=== PATIENT | male | born 1955 | race Two or more races ===

== ENCOUNTER → 2020-04-26 18:08 | Outpatient (CLI) | payer OTHER | END | disposition home or self-care (01) | LOC: LAB 18:08 | PROVIDERS: ATTEND Urology | DX: R97.20 Elevated prostate specific antigen [PSA] (principal) ==

== ENCOUNTER 2020-05-08 07:10 | Outpatient (CLI) | payer OTHER | END 2020-05-08 07:22 | disposition home or self-care (01) | LOC: SONOGRAMA 07:10 | PROVIDERS: ATTEND Urology | DX: Z12.11 Encounter for screening for malignant neoplasm of colon (principal); R97.20 Elevated prostate specific antigen [PSA] ==